=== PATIENT | female | born 1960 | race Caucasian/White ===

== ENCOUNTER 2017-08-25 14:18 | Emergency (ER) | payer OTHER ==
[~2017-08-25] VITALS: Ht 165.1 cm; Wt 41.0 kg
[2017-08-25 14:27] VITALS: BP 106/65
[2017-08-25] MEDS ORDERED: TETanus/Pertussis (Acell)/Diphther VAC/PF (Tdap-Adult) 0.5ml syringe IMVAC ONE (15:35)
== END 2017-08-25 16:35 | disposition home or self-care (01) ==
LOC: ER 14:19
DX: S51.811A Laceration without foreign body of right forearm, initial encounter (principal); Y93.E9 Activity, other interior property and clothing maintenance; Z88.5 Allergy status to narcotic agent; Z88.2 Allergy status to sulfonamides
CPT/HCPCS: 12001; 90471; 90715; 99283; A6255; A6449